=== PATIENT | female | born 1975 | race Caucasian/White ===

== ENCOUNTER 2016-11-12 10:37 | Emergency (ER) | payer OTHER ==
[~2016-11-12] VITALS: Ht 167.6 cm; Wt 61.2 kg
[2016-11-12 10:58] LABS: BASO % 0.2 % (0.0-1.0); EOS # 0.1 10*3/uL (0.0-0.4); EOS % 0.7 % (1.0-4.0); HEMATOCRIT 43.8 % (37.0-47.0); HEMOGLOBIN 15.1 g/dl (12.0-16.0); LYMPH % 22.7 % (27.0-41.0); MEAN CORPUSCULAR HGB 30.3 pg (27.0-31.0); MEAN CORPUSCULAR HGB CONC 34.5 g/dl (33.0-37.0); MEAN PLATELET VOLUME 10.1 fl (9.6-12.3); MONO # 0.5 10*3/uL (0.1-1.0); MONO % 5.8 % (3.0-9.0); NEUT # 6.3 10*3/uL (2.3-7.9); NEUT % 70.3 % (47.0-73.0); PLATELET COUNT AUTOMATED 234 10*3/uL (130-400); RED BLOOD COUNT 4.98 10*6/uL (4.10-5.10); RED CELL DISTRI WIDTH 12.2 % (0-14.5); WHITE BLOOD COUNT 8.9 10*3/uL (4.8-10.8)
[2016-11-12 11:14] LABS: ALBUMIN 4.2 gm/dl (3.1-4.5); ALKALINE PHOSPHATASE 43 U/L (45-117); BILIRUBIN, TOTAL 0.8 mg/dl (0.2-1.0); BUN 10 mg/dl (7-24); CARBON DIOXIDE 22 mmol/L (21-32); CHLORIDE 106 mmol/L (98-107); EST GLOM FILT AFRICAN AMERICAN > 60 ml/min; GLUCOSE 116 mg/dL (65-99); POTASSIUM 3.4 mmol/L (3.5-5.1); SGOT/AST 24 IU/L (3-35); SGPT/ALT 37 U/L (12-78); SODIUM 137 mmol/L (136-145); TOTAL PROTEIN 7.5 gm/dL (6.4-8.2)
[2016-11-12 11:23] LABS: BILIRUBIN NEGATIVE (NEGATIVE); BLOOD NEGATIVE (NEGATIVE); CLARITY CLEAR (CLEAR); COLOR YELLOW (YELLOW); GLUCOSE NEGATIVE (NEGATIVE); KETONE NEGATIVE (NEGATIVE); LEUKO ESTERASE NEGATIVE (NEGATIVE); NITRITE NEGATIVE (NEGATIVE); PH 8.5 (5.0-9.0); PROTEIN NEGATIVE (NEGATIVE); UROBILINOGEN 0.2 E.U./dl (0.2-1.0)
[2016-11-12 11:35] LABS: BACTERIA 1+; RBC 0-2 rbc/hpf (0-2); URINE REFLEX COMMENT NO (NO); WBC 0-2 wbc/hpf (0-5)
[2016-11-12] MEDS ORDERED: CARAFATE1 G1 PO (12:28)
[2016-11-12] MEDS ORDERED: ZOFRAN4 MG PO (12:28)
[2016-11-12] MEDS ORDERED: BENTYL10 MG PO (12:28)
== END 2016-11-12 12:50 | disposition home or self-care (01) ==
LOC: ED 10:37
PROVIDERS: Nurse Practitioner Family
DX: R10.13 Epigastric pain (principal); R11.0 Nausea

== ENCOUNTER 2016-11-14 12:22 | Inpatient (IN) | payer OTHER ==
[~2016-11-14] VITALS: Ht 160 cm; Wt 59.9 kg
[2016-11-14] VITALS (9 sets, daily range): BP systolic 104–135; BP diastolic 51–67
--- NOTE | ~2016-11-14 | WRIGHTHP ---
[place], [place] PATIENT HISTORY AND PHYSICAL EXAM NAME: THOMAS MARINELLI UNIT #: [id number] ROOM: 531 DOCTOR: MANNY BLEDSOE MD BIRTHDATE: [birth year] DOS: 11/14/2016 HISTORY OF PRESENT ILLNESS: The patient is 41 years old. She comes in with complaints of severe abdominal pain. She was seen in the Emergency Room a few days ago with the same discomfort, continued to get worse, and so she decided to come in to the office. Abdominal pain was mostly in the upper part of the abdomen. She had some minimal blood in her stool, but she denied having any chest pains, palpitations, any fever or chills, any diarrhea. PAST MEDICAL HISTORY: Significant for mild major depression, recurrent, on medications and generalized anxiety disorder. MEDICATIONS: Zoloft 50 and Ativan p.r.n. SOCIAL HISTORY: Nonsmoker, does not use any alcohol. FAMILY HISTORY: Significant for father who had CA of the colon. PHYSICAL EXAMINATION: GENERAL: She is awake and alert and oriented. VITAL SIGNS: Graphic trend shows a pressure 111/55, pulse is 65, respirations 20, temperature 98. LUNGS: Diminished breath sounds. No wheezes, rales or rhonchi heard. HEART: Regular. ABDOMEN: Soft, scaphoid, severe tenderness in the epigastric region. EXTREMITIES: Without any edema. She had an ultrasound screening of the abdomen, which showed a gallbladder polyp and a CT of the abdomen on 11/12/2016, which showed colitis, so those were not repeated. ASSESSMENT AND PLAN: 1. Acute abdominal pain, most likely acute gastritis because of the Hemoccult positivity and the blood in the stool. The patient will be admitted and have an endoscopy by Dr. Gallo. 2. A HIDA scan will be ordered to rule out biliary dyskinesia. 3. Major depression. Continue home medications, avoid nonsteroidals. [place], [place] PATIENT HISTORY AND PHYSICAL EXAM NAME: THOMAS MARINELLI UNIT #: [id number] ROOM: 531 DOCTOR: MANNY BLEDSOE MD BIRTHDATE: [birth year] MANNY BLEDSOE MD CM:HISPHYS:PATIENT HISTORY AND PHYSICAL EXAMINATION 8 3 MANNY BLEDSOE MD 11/15/16833 interface
[~2016-11-14 12:22] MED LIST: BENTYL10 MG PO; CARAFATE1 G1 PO; ZOFRAN4 MG PO
[2016-11-14] MEDS ORDERED: CARAFATE1 G1 PO (13:29)
[2016-11-14] MEDS ORDERED: DICYCLOMINE HCL10 MG PO (13:30)
[2016-11-14] MEDS ORDERED: Zofran4 MG PO (13:32)
[2016-11-14 13:37] LABS: BASO % 0.4 % (0.0-1.0); EOS # 0.1 10*3/uL (0.0-0.4); EOS % 0.7 % (1.0-4.0); HEMATOCRIT 41.4 % (37.0-47.0); HEMOGLOBIN 14.4 g/dl (12.0-16.0); LYMPH # 1.6 10*3/uL (1.3-4.4); LYMPH % 23.8 % (27.0-41.0); MEAN CORPUSCULAR HGB 31.3 pg (27.0-31.0); MEAN CORPUSCULAR HGB CONC 34.8 g/dl (33.0-37.0); MEAN PLATELET VOLUME 9.6 fl (9.6-12.3); MONO # 0.6 10*3/uL (0.1-1.0); MONO % 8.6 % (3.0-9.0); NEUT # 4.5 10*3/uL (2.3-7.9); NEUT % 66.2 % (47.0-73.0); PLATELET COUNT AUTOMATED 202 10*3/uL (130-400); RED CELL DISTRI WIDTH 12.1 % (0-14.5); WHITE BLOOD COUNT 6.9 10*3/uL (4.8-10.8)
[2016-11-14] MEDS ORDERED: ZOLOFT100 MG PO (13:38)
[2016-11-14] MEDS ORDERED: ATIVAN1 MG PO (13:39)
[2016-11-14 13:49] LABS: BUN 13 mg/dl (7-24); CARBON DIOXIDE 26 mmol/L (21-32); CHLORIDE 103 mmol/L (98-107); EST GLOM FILT AFRICAN AMERICAN > 60 ml/min; GLUCOSE 88 mg/dL (65-99); POTASSIUM 3.7 mmol/L (3.5-5.1); SODIUM 140 mmol/L (136-145)
[2016-11-15] VITALS: BP 111/55
[2016-11-15 06:00] LABS: BASO % 0.2 % (0.0-1.0); EOS # 0.1 10*3/uL (0.0-0.4); EOS % 0.7 % (1.0-4.0); HEMOGLOBIN 12.7 g/dl (12.0-16.0); LYMPH # 2.2 10*3/uL (1.3-4.4); MEAN CORPUSCULAR HGB 30.9 pg (27.0-31.0); MEAN CORPUSCULAR HGB CONC 34.3 g/dl (33.0-37.0); MEAN PLATELET VOLUME 10.3 fl (9.6-12.3); MONO # 0.8 10*3/uL (0.1-1.0); NEUT # 6.4 10*3/uL (2.3-7.9); NEUT % 67.8 % (47.0-73.0); PLATELET COUNT AUTOMATED 182 10*3/uL (130-400); RED BLOOD COUNT 4.11 10*6/uL (4.10-5.10); RED CELL DISTRI WIDTH 11.9 % (0-14.5); WHITE BLOOD COUNT 9.4 10*3/uL (4.8-10.8)
[2016-11-15 06:33] LABS: BUN 11 mg/dl (7-24); CARBON DIOXIDE 23 mmol/L (21-32); CHLORIDE 109 mmol/L (98-107); EST GLOM FILT AFRICAN AMERICAN > 60 ml/min; GLUCOSE 78 mg/dL (65-99); POTASSIUM 3.7 mmol/L (3.5-5.1); SODIUM 140 mmol/L (136-145)
[2016-11-15 08:00] VITALS: BP 115/50
[2016-11-15] MEDS ORDERED: PROTONIX40 MG PO (08:16)
== END 2016-11-15 09:56 | disposition home or self-care (01) | DRG 392 ==
LOC: 5E 12:22
PROVIDERS: Internal Medicine
PROC: 0DB68ZX Excision of Stomach, Via Natural or Artificial Opening Endoscopic, Diagnostic (ICD-10-PCS; principal; 2016-11-14)
PROC: 0DBN8ZZ Excision of Sigmoid Colon, Via Natural or Artificial Opening Endoscopic (ICD-10-PCS; principal; 2016-11-14)
DX: K29.70 Gastritis, unspecified, without bleeding (principal); F32.9 Major depressive disorder, single episode, unspecified; F41.1 Generalized anxiety disorder; K29.80 Duodenitis without bleeding; K44.9 Diaphragmatic hernia without obstruction or gangrene; Z80.0 Family history of malignant neoplasm of digestive organs

== ENCOUNTER → 2018-06-28 | Outpatient (CLI) | payer OTHER ==
[~2018-06-28] MED LIST changes: +ATIVAN1 MG PO; +CYMBALTA30 MG PO; +DICYCLOMINE HCL10 MG PO; +PROTONIX40 MG PO; +ZOLOFT100 MG PO; +Zofran4 MG PO
== END | disposition home or self-care (01) ==
LOC: LAB 12:55 → MRI 13:00
DX: Z13.1 Encounter for screening for diabetes mellitus (principal); Z13.21 Encounter for screening for nutritional disorder; Z13.220 Encounter for screening for lipoid disorders; M47.812 Spondylosis without myelopathy or radiculopathy, cervical region

== ENCOUNTER → 2018-10-12 | Day surgery (SDC) | payer OTHER ==
[~2018-10-12] VITALS: Ht 162.5 cm; Wt 61.2 kg
--- NOTE | ~2018-10-12 | PROC NOTE ---
[place], [place] PROCEDURE NOTE NAME: THOMAS MARINELLI UNIT #: [id number] ROOM: DOCTOR: CARINA CHURCH MD BIRTHDATE: [birth year] DOS: 10/12/2018 PROCEDURES: Colonoscopy and polypectomy. INDICATION: History of colon polyps. Informed consent was obtained from the patient after indication of procedure, the alternatives and potential complications were explained to her. PROCEDURE MEDICATION: Sedation was administered by Anesthesiology Department. SCOPE USED: Olympus pediatric colonoscope variable stiffness GIF-180, depth of insertion was to the cecum, which was identified by the usual landmarks, appendiceal orifice, ileocecal valve and triangular fold, in addition to transillumination in the right lower quadrant. FINDINGS: After adequate sedation, the patient was placed in left lateral decubitus position. Rectal examination showed a normal sphincter tone and no external hemorrhoids. Scope was introduced into the rectum, then advanced to the cecum with no difficulty. The prep was adequate. A very small 2 mm polyp was noted in the proximal sigmoid colon with adjacent Nikky ink marking. The polyp was removed with a cold mini snare, but could not be recovered. The remaining colon mucosa showed evidence of moderate left-sided diverticular disease, otherwise no further abnormalities. No other polyps or obstructing lesions or inflammation. Retroflexed views in the rectum showed grade 1 internal hemorrhoids. The scope was then withdrawn after the rectum was decompressed. The patient tolerated the procedure well. IMPRESSION: 1. Small sigmoid colon polyp at the site of previous Nikky ink markings. The polyp was removed, but could not be recovered. 2. Moderate left-sided diverticular disease. 3. Small internal hemorrhoids. 4. Normal colon mucosa otherwise. PLAN: A repeat surveillance colonoscopy advised in 3 years. Office followup will be scheduled in 2-3 weeks. [place], [place] PROCEDURE NOTE NAME: THOMAS MARINELLI UNIT #: [id number] ROOM: DOCTOR: CARINA CHURCH MD BIRTHDATE: [birth year] CARINA CHURCH MD CM:PROCNOTE:PROCEDURE NOTE [id number] MANNY CHURCH MD
[2018-10-12 08:22] VITALS: BP 131/64
[2018-10-12 09:09] VITALS: BP 93/47
[2018-10-12 09:25] VITALS: BP 103/60
[2018-10-12 09:41] VITALS: BP 128/76
== END | disposition home or self-care (01) ==
LOC: SDC 08-20 12:30
DX: Z12.11 Encounter for screening for malignant neoplasm of colon (principal); K64.0 First degree hemorrhoids; K57.90 Diverticulosis of intestine, part unspecified, without perforation or abscess without bleeding; F41.9 Anxiety disorder, unspecified; F32.9 Major depressive disorder, single episode, unspecified; Z98.890 Other specified postprocedural states; Z86.010 Personal history of colon polyps; Z83.3 Family history of diabetes mellitus

== ENCOUNTER → 2019-05-30 | Outpatient (CLI) | payer OTHER | END | disposition home or self-care (01) | LOC: CT 10:51 | DX: K57.90 Diverticulosis of intestine, part unspecified, without perforation or abscess without bleeding (principal); Z97.5 Presence of (intrauterine) contraceptive device ==

== ENCOUNTER → 2019-06-09 | Outpatient (CLI) | payer OTHER ==
[2019-06-09 09:09] LABS: BASO % 0.2 % (0.0-1.0); EOS # 0.1 10*3/uL (0.0-0.4); EOS % 1.8 % (1.0-4.0); HEMATOCRIT 39.2 % (37.0-47.0); HEMOGLOBIN 13.3 g/dl (12.0-16.0); LYMPH # 1.6 10*3/uL (1.3-4.4); LYMPH % 26.2 % (27.0-41.0); MEAN CELL VOLUME 89.7 fl (81.0-99.0); MEAN CORPUSCULAR HGB 30.4 pg (27.0-31.0); MEAN CORPUSCULAR HGB CONC 33.9 g/dl (33.0-37.0); MEAN PLATELET VOLUME 9.7 fl (9.6-12.3); MONO # 0.5 10*3/uL (0.1-1.0); MONO % 7.5 % (3.0-9.0); PLATELET COUNT AUTOMATED 257 10*3/uL (130-400); RED BLOOD COUNT 4.37 10*6/uL (4.10-5.10); RED CELL DISTRI WIDTH 11.6 % (0-14.5); WHITE BLOOD COUNT 6.2 10*3/uL (4.8-10.8)
[2019-06-09 09:37] LABS: ALBUMIN 3.8 gm/dl (3.1-4.5); ALKALINE PHOSPHATASE 38 U/L (45-117); BUN 13 mg/dl (7-24); CHLORIDE 105 mmol/L (98-107); CHOLESTEROL 156 mg/dL (<200); CREATININE 0.72 mg/dL (0.55-1.02); HDL CHOLESTEROL 87 mg/dl (40-60); LDL CHOLESTEROL 59 mg/dL (9-159); POTASSIUM 3.8 mmol/L (3.5-5.1); SGOT/AST 8 IU/L (3-35); SGPT/ALT 19 U/L (12-78); SODIUM 139 mmol/L (136-145); TOTAL PROTEIN 7.2 gm/dL (6.4-8.2); TRIGLYCERIDES 48 mg/dl (<150); VLDL CHOLESTEROL 10 mg/dL (6-40)
== END | disposition home or self-care (01) ==
LOC: LAB 08:35
PROVIDERS: Internal Medicine
DX: F32.9 Major depressive disorder, single episode, unspecified (principal)

== ENCOUNTER → 2021-01-26 | Outpatient (CLI) | payer OTHER ==
[~2021-01-26] MED LIST changes: +NEURONTIN400 MG PO; +ZOLOFT50 MG PO
[2021-01-26 14:30] LABS: BASO # 0.1 10*3/uL (0.0-0.1); BASO % 0.6 % (0.0-1.0); EOS # 0.1 10*3/uL (0.0-0.4); EOS % 1.3 % (1.0-4.0); HEMATOCRIT 44.2 % (37.0-47.0); LYMPH # 1.9 10*3/uL (1.3-4.4); LYMPH % 23.1 % (27.0-41.0); MEAN CELL VOLUME 89.8 fl (81.0-99.0); MEAN CORPUSCULAR HGB 29.3 pg (27.0-31.0); MEAN CORPUSCULAR HGB CONC 32.6 g/dl (33.0-37.0); MEAN PLATELET VOLUME 9.9 fl (9.6-12.3); MONO # 0.6 10*3/uL (0.1-1.0); MONO % 7.2 % (3.0-9.0); NEUT # 5.5 10*3/uL (2.3-7.9); NEUT % 67.3 % (47.0-73.0); PLATELET COUNT AUTOMATED 284 10*3/uL (130-400); RED BLOOD COUNT 4.92 10*6/uL (4.10-5.10); RED CELL DISTRI WIDTH 11.8 % (0-14.5); WHITE BLOOD COUNT 8.2 10*3/uL (4.8-10.8)
[2021-01-26 14:46] LABS: ALBUMIN 3.9 gm/dl (3.1-4.5); ALKALINE PHOSPHATASE 45 U/L (45-117); BUN 14 mg/dl (7-24); CHLORIDE 106 mmol/L (98-107); CHOLESTEROL 217 mg/dL (<200); CREATININE 0.62 mg/dL (0.55-1.02); LDL CHOLESTEROL 93 mg/dL (9-159); POTASSIUM 3.8 mmol/L (3.5-5.1); SGOT/AST 15 IU/L (3-35); SGPT/ALT 27 U/L (12-78); SODIUM 138 mmol/L (136-145); TOTAL PROTEIN 7.2 gm/dL (6.4-8.2); TRIGLYCERIDES 76 mg/dl (<150)
[2021-01-26 14:47] LABS: FREE T4 0.87 ng/dl (0.76-1.46)
[2021-01-26 15:20] LABS: VITAMIN D, 25-HYDROXY 23.5 ng/mL (30-100)
== END | disposition home or self-care (01) ==
LOC: US 01-19 10:00 → LAB 13:04
PROVIDERS: ATTEND Internal Medicine
DX: Z00.00 Encounter for general adult medical examination without abnormal findings (principal); N60.02 Solitary cyst of left breast; N63.11 Unspecified lump in the right breast, upper outer quadrant; Z13.1 Encounter for screening for diabetes mellitus; Z13.21 Encounter for screening for nutritional disorder; Z13.220 Encounter for screening for lipoid disorders; E55.9 Vitamin D deficiency, unspecified; M79.7 Fibromyalgia; R70.0 Elevated erythrocyte sedimentation rate

== ENCOUNTER → 2022-07-22 | Outpatient (CLI) | payer OTHER | END | disposition home or self-care (01) | LOC: MRI 08:00 | PROVIDERS: ATTEND Internal Medicine | DX: R41.3 Other amnesia (principal); E78.2 Mixed hyperlipidemia; R00.1 Bradycardia, unspecified ==

== ENCOUNTER → 2022-07-23 | Outpatient (CLI) | payer OTHER ==
[2022-07-23 10:51] LABS: BASO % 0.4 % (0.0-1.0); EOS # 0.1 10*3/uL (0.0-0.4); EOS % 1.2 % (1.0-4.0); HEMATOCRIT 41.6 % (37.0-47.0); LYMPH # 1.8 10*3/uL (1.3-4.4); MEAN CELL VOLUME 89.8 fl (81.0-99.0); MEAN CORPUSCULAR HGB 30.7 pg (27.0-31.0); MEAN CORPUSCULAR HGB CONC 34.1 g/dl (33.0-37.0); MEAN PLATELET VOLUME 9.9 fl (9.6-12.3); MONO # 0.6 10*3/uL (0.1-1.0); MONO % 7.5 % (3.0-9.0); NEUT # 5.6 10*3/uL (2.3-7.9); NEUT % 68.7 % (47.0-73.0); PLATELET COUNT AUTOMATED 237 10*3/uL (130-400); RED BLOOD COUNT 4.63 10*6/uL (4.10-5.10); RED CELL DISTRI WIDTH 11.9 % (0-14.5); WHITE BLOOD COUNT 8.1 10*3/uL (4.8-10.8)
[2022-07-23 11:19] LABS: ALKALINE PHOSPHATASE 41 U/L (46-116); BUN 7 mg/dl (9-23); CHLORIDE 103 mmol/L (98-107); CHOLESTEROL 194 mg/dL (<200); FREE T4 0.97 ng/dl (0.89-1.76); LDL CHOLESTEROL 84 mg/dL (9-159); POTASSIUM 3.9 mmol/L (3.4-5.1); SGPT/ALT 16 U/L (10-49); THYROID STIM HORMONE (HS) 1.497 uIU/ml (0.550-4.780); TOTAL PROTEIN 7.2 gm/dL (6.0-8.0); TRIGLYCERIDES 99 mg/dl (<150)
[2022-07-23 12:41] LABS: VITAMIN D, 25-HYDROXY 30.4 ng/mL (30-100)
== END | disposition home or self-care (01) ==
LOC: LAB 10:34
PROVIDERS: ATTEND Internal Medicine
DX: E78.2 Mixed hyperlipidemia (principal); R00.1 Bradycardia, unspecified

== ENCOUNTER 2022-08-29 13:40 | Emergency (ER) | payer OTHER ==
[2022-08-29] MEDS ORDERED: PREDNISONE20 M1 PO (16:16)
[2022-08-29] MEDS ORDERED: VALTREX1000 MG PO (16:16)
[2022-08-29] MEDS ORDERED: ARTIFICIAL TEAR1514 OP (16:16)
[2022-08-29] MEDS ORDERED: DOXYCYCLINE HY100 M3 PO (16:16)
== END 2022-08-29 16:59 | disposition home or self-care (01) ==
LOC: ED 13:40
DX: G51.0 Bell's palsy (principal); R21 Rash and other nonspecific skin eruption; F41.9 Anxiety disorder, unspecified; F32.A Depression, unspecified; Z98.890 Other specified postprocedural states

== ENCOUNTER 2023-12-15 06:51 | Emergency (ER) | payer OTHER ==
[~2023-12-15] VITALS: Ht 160 cm; Wt 59.0 kg
[~2023-12-15 06:51] MED LIST changes: +ARTIFICIAL TEAR1514 OP; +DOXYCYCLINE HY100 M3 PO; +PREDNISONE20 M1 PO; +VALTREX1000 MG PO
[2023-12-15] MEDS ORDERED: Ketorolac Tromethamine 30 MG/ML VIAL IV ONE (07:15)
[2023-12-15] MEDS ORDERED: MORPHINE Sulfate 2 MG/ML SYR IV ONE ×2 (07:15→08:30)
[2023-12-15] MEDS ORDERED: Ondansetron Hydrochloride 4 MG/2 ML VIAL IV ONE (07:15)
[2023-12-15 07:36] LABS: BASO % 0.5 % (0.0-1.0); EOS # 0.1 10*3/uL (0.0-0.4); EOS % 1.4 % (1.0-4.0); HEMATOCRIT 39.5 % (37.0-47.0); LYMPH # 1.7 10*3/uL (1.3-4.4); MEAN CELL VOLUME 86.4 fl (81.0-99.0); MEAN CORPUSCULAR HGB 30.4 pg (27.0-31.0); MEAN CORPUSCULAR HGB CONC 35.2 g/dl (33.0-37.0); MEAN PLATELET VOLUME 9.5 fl (9.6-12.3); MONO # 0.5 10*3/uL (0.1-1.0); NEUT # 6.3 10*3/uL (2.3-7.9); NEUT % 71.8 % (47.0-73.0); PLATELET COUNT AUTOMATED 267 10*3/uL (130-400); RED BLOOD COUNT 4.57 10*6/uL (4.10-5.10); RED CELL DISTRI WIDTH 11.6 % (0-14.5); WHITE BLOOD COUNT 8.7 10*3/uL (4.8-10.8)
[2023-12-15] MEDS ORDERED: LORazepam 2 MG/ML VIAL IV ONE (07:50)
[2023-12-15 07:58] LABS: BUN 13 mg/dl (9-23); CHLORIDE 107 mmol/L (98-107)
[2023-12-15] MEDS ORDERED: Promethazine Hydrochloride 25 MG/ML VIAL IV ONE (08:30)
[2023-12-15] MEDS ORDERED: SODIUM CHLORIDE 0.9% 1,000 ML IV ONE (09:00)
[2023-12-15] MEDS ORDERED: MAGNESIUM SULFATE 50 ML IV ONE (09:45)
[2023-12-15 10:02] LABS: BILIRUBIN 1+ (Negative); BLOOD 2+ (Negative); CLARITY Turbid (Clear); GLUCOSE Negative (Negative); KETONE 3+ (Negative); LEUKO ESTERASE 1+ (Negative); NITRITE Negative (Negative); PH 5.5 (4.5-8.0); SPECIFIC GRAVITY >= 1.030 (1.001-1.030)
[2023-12-15 10:08] LABS: COLOR Dark Yellow (Yellow)
[2023-12-15 10:12] LABS: RBC TNTC rbc/hpf (0-2)
[2023-12-15] MEDS ORDERED: FLOMAX0.4 MG PO (10:51)
[2023-12-15] MEDS ORDERED: HYDROCODONE-AC1 EAC1 PO (10:51)
[2023-12-15] MEDS ORDERED: Ondansetron4 MG PO (10:53)
== END 2023-12-15 11:07 | disposition home or self-care (01) ==
LOC: ED 06:51
PROVIDERS: Internal Medicine
DX: N13.2 Hydronephrosis with renal and ureteral calculous obstruction (principal); R11.0 Nausea; F41.9 Anxiety disorder, unspecified; F32.A Depression, unspecified; Z98.890 Other specified postprocedural states

== ENCOUNTER → 2024-01-15 | Outpatient (CLI) | payer OTHER ==
[~2024-01-15] MED LIST changes: +FLOMAX0.4 MG PO; +HYDROCODONE-AC1 EAC1 PO; +Ondansetron4 MG PO
== END | disposition home or self-care (01) ==
LOC: RAD 08:04
PROVIDERS: ATTEND Nurse Practitioner Family
DX: N20.0 Calculus of kidney (principal)

== ENCOUNTER 2024-09-14 20:13 | Emergency (ER) | payer OTHER ==
[~2024-09-14] VITALS: Ht 165.1 cm; Wt 64.4 kg
[2024-09-14] MEDS ORDERED: PENICILLIN VK500 MG PO (20:33)
[2024-09-14] MEDS ORDERED: PENICILLIN V POTASSIUM 500 MG TAB PO ONE (20:35)
[2024-09-14] MEDS ORDERED: Acetaminophen/Hydrocodone 5 MG/325 MG TABLET PO ONE (20:45)
== END 2024-09-14 20:42 | disposition home or self-care (01) ==
LOC: ED 20:13
DX: K04.7 Periapical abscess without sinus (principal); F32.A Depression, unspecified; F41.9 Anxiety disorder, unspecified; Z79.899 Other long term (current) drug therapy; Z98.890 Other specified postprocedural states